=== PATIENT | female | born 1990 | race Asian ===

== ENCOUNTER 2018-10-10 13:10 | Emergency (ER) | payer OTHER ==
[~2018-10-10] VITALS: Ht 157.5 cm; Wt 65.6 kg
[2018-10-10 14:04] LABS: BASOPHILS # (AUTO) 0.02 x10^3/uL (0-0.1); BASOPHILS % (AUTO) 0 % (0-1); EOSINOPHILS # (AUTO) 0.03 x10^3/uL (0-0.4); EOSINOPHILS % (AUTO) 0 % (1-7); LYMPHOCYTES # (AUTO) 1.51 x10^3/uL (1-3.4); LYMPHOCYTES % (AUTO) 23 % (22-44); MD NO; MEAN CORPUSCULAR HEMOGLOBIN 29.7 pg (27.0-34.8); MEAN CORPUSCULAR HGB CONC 34.2 g/dL (32.4-35.8); MEAN CORPUSCULAR VOLUME 86.8 fL (80-100); MEAN PLATELET VOLUME 8.3 fL (7.4-10.4); MONOCYTES # (AUTO) 0.39 x10^3/uL (0.2-0.8); MONOCYTES % (AUTO) 6 % (2-9); NEUTROPHILS # (AUTO) 4.65 x10^3/uL (1.8-6.8); NEUTROPHILS % (AUTO) 71 % (42-75); PLATELET COUNT 235 x10^3/uL (130-400); RED BLOOD COUNT 3.37 x10^6/uL (3.82-5.3); RED CELL DISTRIBUTION WIDTH 12.6 % (9.6-15.2)
[2018-10-10 14:07] LABS: ALBUMIN 3.6 g/dL (3.4-5.0); ANION GAP 9 mmol/L (5-15); CALCIUM 8.1 mg/dL (8.5-10.1); CHLORIDE 107 mmol/L (98-107)
[2018-10-10 14:12] LABS: CREATININE 1.13 mg/dL (0.55-1.02)
[2018-10-10 14:34] VITALS: BP 103/72
--- NOTE | 2018-10-10 14:40 | NUR ---
PT OOB TO AMB TO BATHROOM. C/O INCREASED DIZZINESS. COMMODE BROUGHT TO ROOM. PT VOIDED W/O DIFFICULTY RTD TO [facility]. HR 135 ER NOTIFIED
--- NOTE | 2018-10-10 14:43 | NUR ---
LATE ENTRY FOR 1316 BIB EMS FROM HOME. ANXIETY ATTACK, "IUD ON 09/27, BLEEDING A LOT" LLQ ABD PAIN BUT ONLY WITH PALPATION. PT STATES SHE IS CURRENTLY ON HER MENSES BUT THE BLEEDING SHE IS HAVING IS "MUCH MORE THAN NORMAL". CALL LIGHT W/I REACH. AWAITING ER MD JEAN-BAPTISTE.
[2018-10-10] MEDS ORDERED: SODIUM CHLORIDE FLUSH 10ML SYR IVF ONE (15:00)
[2018-10-10] MEDS ORDERED: SODIUM CHLORIDE 0.9% 1,000ML IVBOLUS ONE (15:00)
--- NOTE | 2018-10-10 15:10 | NUR ---
SBAR RPT TO [facility]
--- NOTE | 2018-10-10 15:15 | NUR ---
IV BOLUS STARTED. RV'WD POC WITH PT, SHE VERBALIZES UNDERSTANDING.
--- NOTE | 2018-10-10 15:49 | NUR ---
PT UP TO [facility]. FRIEND AT BS.
--- NOTE | 2018-10-10 15:52 | NUR ---
ERP AT BS FOR PELVIC EXAM.
--- NOTE | 2018-10-10 16:22 | NUR ---
PT TO US VIA [facility].
--- NOTE | 2018-10-10 16:59 | NUR ---
PT BACK FROM [facility].
--- NOTE | 2018-10-10 19:14 | NUR ---
D/C INSTRUCTIONS, MEDS, & F/U APPT RV'WD WITH PT, SHE VERBALIZES UNDERSTANDING. PT AMBULATED OUT OF ED WITH FAMILY WITHOUT DIFFICULTY.
== END 2018-10-10 19:16 | disposition home or self-care (01) ==
LOC: ED 19:06
DX: N92.4 Excessive bleeding in the premenopausal period (principal); N93.8 Other specified abnormal uterine and vaginal bleeding; N92.1 Excessive and frequent menstruation with irregular cycle
CPT/HCPCS: 36415; 74021; 76830; 80048; 82040; 84703; 85025; 96360; 99284; J7030